=== PATIENT | female | born 1990 | race Caucasian/White ===

== ENCOUNTER → 2025-07-18 08:10 | Outpatient (REF) | payer OTHER, SELFPAY | LOC: PNTC 08:10 | PROVIDERS: ATTENDING PHYSICIAN Obstetrics & Gynecology | DX: Z36.0 Encounter for antenatal screening for chromosomal anomalies (principal); Z36.82 Encounter for antenatal screening for nuchal translucency; O09.521 Supervision of elderly multigravida, first trimester | CPT/HCPCS: 76801; 76813 ==